=== PATIENT | female | born 1950 | race Asian ===

== ENCOUNTER 2017-11-09 12:14 | Inpatient (IN) | payer OTHER, MEDICAID ==
[~2017-11-09] VITALS: Ht 152.4 cm; Wt 57.6 kg
[2017-11-09] MEDS ORDERED: SIMVASTATIN20 M1 PO (17:36)
[2017-11-09] MEDS ORDERED: LOSARTAN POTASS1 TAB PO (17:37)
[2017-11-09] MEDS ORDERED: D3 20002000 IU PO (17:37)
[2017-11-09] MEDS ORDERED: CALCIUM/VITAMIN1 TA2 PO (17:37)
[2017-11-09] MEDS ORDERED: EVISTA60 MG PO (17:38)
[2017-11-09] MEDS ORDERED: MOBIC15 MG PO (17:38)
[2017-11-09 18:40] LABS: CARBON DIOXIDE 26.9 mmol/L (21-32); CHLORIDE SERUM 104 mmol/L (98-107); CREATININE SERUM 0.6 mg/dL (0.6-1.0); GFR1 > 60 mL/min; GLUCOSE SERUM 123 mg/dL (74-106); POTASSIUM SERUM 3.5 mmol/L (3.5-5.1); SODIUM SERUM 139 mmol/L (136-145)
[2017-11-09 18:44] VITALS: BP 163/82
[2017-11-09 18:46] LABS: BASOPHIL % 0.4 % (0-2); PLATELET COUNT 320 x10^3mcL (130-400)
[2017-11-09 18:47] VITALS: Ht 152.4 cm; Wt 57.6 kg
[2017-11-09 19:11] LABS: T3 TOTAL 0.65 ng/mL
[2017-11-09 19:16] LABS: FREE T4 1.11 ng/dL (0.76-1.46); FREE THYROXINE INDEX 2.9 ug/dL (1.4-4.5); T4(THYROXINE) 8.2 ug/dL (4.7-13.3)
[2017-11-09 19:57] LABS: CHOLESTEROL/HDL RATIO 3.3
[2017-11-09 20:23] LABS: C REACTIVE PROTEIN < 0.2 mg/dL (<=0.9)
[2017-11-09 20:24] LABS: PHOSPHOROUS 3.9 mg/dL (2.5-4.9)
[2017-11-09 21:57] VITALS: BP 142/78
[2017-11-10 06:53] VITALS: BP 135/71
[2017-11-10 10:02] VITALS: BP 126/63
[2017-11-10 13:50] VITALS: BP 127/65
[2017-11-10 14:29] LABS: UA SPECIFIC GRAVITY <=1.005 (1.005-1.035); microscopic required? YES; urine erythrocyte TRACE (NEGATIVE)
[2017-11-10 14:40] LABS: AMPHETAMINE QUAL UR NONE DETECTED (NEG <=1000)
[2017-11-10 17:30] VITALS: BP 137/73
[2017-11-10 21:20] VITALS: BP 126/63
[2017-11-11 05:17] VITALS: BP 120/70
[2017-11-11 07:11] LABS: BASOPHIL % 0.5 % (0-2); PLATELET COUNT 276 x10^3mcL (130-400); RED CELL DISTRIBUTION WIDTH 13.3 % (11.5-14.5)
[2017-11-11 07:27] LABS: CALCIUM 7.7 mg/dL (8.5-10.1); CHLORIDE SERUM 108 mmol/L (98-107); CREATININE SERUM 0.5 mg/dL (0.6-1.0); GFR1 > 60 mL/min; GLUCOSE SERUM 104 mg/dL (74-106); POTASSIUM SERUM 4.2 mmol/L (3.5-5.1); SODIUM SERUM 143 mmol/L (136-145)
[2017-11-11 09:38] VITALS: BP 134/76
[2017-11-11 09:44] VITALS: BP 134/76
[2017-11-11] MEDS ORDERED: LAC PO (10:22)
[2017-11-11] MEDS ORDERED: KEFLEX500 M1 PO (10:22)
[2017-11-11 14:29] VITALS: BP 131/68
[2017-11-11 14:49] VITALS: BP 131/68
== END 2017-11-11 18:38 | disposition home health service (06) | DRG 553 ==
LOC: ED 12:14 → DU 17:42
PROVIDERS: Emergency Medicine; Family Medicine
DX: M16.11 Unilateral primary osteoarthritis, right hip (principal); N17.0 Acute kidney failure with tubular necrosis; N39.0 Urinary tract infection, site not specified; M17.11 Unilateral primary osteoarthritis, right knee; M81.0 Age-related osteoporosis without current pathological fracture; R26.2 Difficulty in walking, not elsewhere classified; E83.51 Hypocalcemia; I10 Essential (primary) hypertension; E78.5 Hyperlipidemia, unspecified; Z90.710 Acquired absence of both cervix and uterus; Z84.89 Family history of other specified conditions; Z68.25 Body mass index [BMI] 25.0-25.9, adult
CPT/HCPCS: 83880; 84439; 97110-GP; 97116-GP; 97530-GP; 97535-GP; J0696; J1885; J7030